=== PATIENT | female | born 1995 | race American Indian/Alaskan Native ===

== ENCOUNTER 2017-05-20 00:43 | Outpatient (CLI) | payer MEDICAID ==
[2017-05-20 01:01] VITALS: BP 106/57
[2017-05-20] MEDS ORDERED: LACTATED RINGERS 1,000 ML ONE (01:47)
[2017-05-20] MEDS ORDERED: LACTATED RINGERS 1,000 ML IV ONE (02:30)
== END 2017-05-20 03:13 | disposition home or self-care (01) ==
LOC: TRG 00:43
PROVIDERS: ATTEND Obstetrics & Gynecology
DX: O26.892 Other specified pregnancy related conditions, second trimester (principal); M54.9 Dorsalgia, unspecified; Z87.891 Personal history of nicotine dependence; Z3A.26 26 weeks gestation of pregnancy
CPT/HCPCS: 59025; 96360; J7120